=== PATIENT | female | born 1990 | race Hispanic/Latino ===

== ENCOUNTER → 2016-11-17 | Outpatient (CLI) | payer OTHER ==
--- NOTE | 2016-11-18 02:31 | REP ---
Clinical: Lower back pain with sciatica and acute left-sided pain. Technique: AP and oblique views of the bilateral sacroiliac joints. Findings: Sacroiliac joints are symmetric and normal. Osseous structures are intact and unremarkable. Impression: Normal sacroiliac joint series. Signed by Travis Miguel MD 11/18/2016 02:23 A
--- NOTE | 2016-11-18 02:32 | REP ---
Clinical: Acute lower back pain radiating to the left side . Technique: AP, lateral, bilateral oblique, and coned-down views. Findings: Alignment and lordosis is maintained. The vertebral bodies including transverse process and spinous processes are intact and normal. There is no evidence for acute fracture / compression injury or subluxation. No evidence for spondylolysis or spondylolisthesis. No significant degenerative change is noted. Impression: Normal lumbosacral spine radiograph series. Signed by Travis Miguel MD 11/18/2016 02:24 A
== END ==
LOC: M LRY 19:40
PROVIDERS: ATTEND Physician Assistant
DX: M54.5 Low back pain (principal)

== ENCOUNTER → 2017-06-22 | Outpatient (CLI) | payer OTHER ==
--- NOTE | 2017-06-22 10:17 | REP ---
Clinical: Trauma . Technique: AP, lateral, bilateral oblique views right ankle . Findings: Lateral swelling consist with inversion injury. No acute fracture or dislocation. Skeletal structures and joint spaces are intact and normal. Ankle mortise appears stable. No subcutaneous emphysema or radiodense foreign body. Impression: Lateral swelling. No acute fracture or dislocation. Signed by Travis Miguel MD 06/22/2017 10:08 A
== END ==
LOC: M LRY 09:47
PROVIDERS: ATTEND Nurse Practitioner Family
DX: R60.0 Localized edema (principal)
CPT/HCPCS: 73610; G0463

== ENCOUNTER → 2018-06-19 | Outpatient (REF) | payer OTHER ==
[2018-06-20 00:12] LABS: CHLAMYDIA DNA AMPLIFICATION NEGATIVE (NEGATIVE); GC DNA AMPLIFICATION NEGATIVE (NEGATIVE)
== END ==
LOC: M SFHCLERA 16:25
DX: Z11.3 Encounter for screening for infections with a predominantly sexual mode of transmission (principal)